=== PATIENT | female | born 1930 | race Caucasian/White ===

== ENCOUNTER → 2017-09-16 | Outpatient (CLI) | payer OTHER ==
[~2017-09-16] MED LIST: ASA FREE ANALG1 EACH PO; ECOTRIN325 MG PO; Z VERAPAMIL HCL PO; Z.0.DIOVAN40 MG PO; Z.0.LIPITOR20 MG PO; Z.0.PLAVIX75 MG PO
== END ==
LOC: NPA 13:00
PROVIDERS: ATTEND Internal Medicine
DX: R69 Illness, unspecified (principal)

== ENCOUNTER → 2017-09-17 | Outpatient (CLI) | payer OTHER | LOC: NPA 12:00 | PROVIDERS: ATTEND Internal Medicine | DX: R69 Illness, unspecified (principal) | CPT/HCPCS: 87493 ==

== ENCOUNTER → 2017-09-24 | Outpatient (CLI) | payer OTHER ==
[2017-09-25 21:44] LABS: ANION GAP 18.6 mmol/L (8-16); BLOOD UREA NITROGEN 19 mg/dL (7-26); BUN/CREATININE RATIO 28 (6-25); CALCIUM 10.3 mg/dL (8.4-10.2); CARBON DIOXIDE 22 mmol/L (22-29); CHLORIDE 99 mmol/L (98-107); CREATININE, SERUM 0.67 mg/dL (0.57-1.11); EST GLOMERULAR FILTRATION RATE > 60 ML/MIN (60-); GLUCOSE 131 mg/dL (74-118); POTASSIUM 3.6 mmol/L (3.5-5.1); SODIUM 136 mmol/L (136-145)
[2017-09-25 21:45] LABS: BASOPHILS % 0.1 % (0.0-1.0); EOSINOPHILS % 0.2 % (0.0-6.0); HEMATOCRIT 41.6 % (34.2-44.1); HEMOGLOBIN 13.4 g/dL (12.0-16.0); MEAN CORPUSCULAR HEMOGLOBIN 27.6 pg (28-32); MEAN CORPUSCULAR HGB CONC 32.2 g/dL (31-35); MEAN CORPUSCULAR VOLUME 85.8 fL (81-99); MONOCYTES % 0.9 % (4.4-11.3); NEUTROPHILS % 5.3 % (38.7-80.0); PLATELET COUNT 361 x10e3/uL (140-360); RED BLOOD COUNT 4.85 x10e6/uL (3.6-5.1); RED CELL DISTRIBUTION WIDTH 63.4 % (11.7-14.4)
== END ==
LOC: NPA 17:00
PROVIDERS: ATTEND Internal Medicine
DX: R69 Illness, unspecified (principal)
CPT/HCPCS: 36415; 80048; 85025

== ENCOUNTER → 2018-01-11 | Outpatient (CLI) | payer MEDICARE, OTHER ==
--- NOTE | 2018-01-11 09:41 | Diagnostic Imaging Report ---
PROCEDURE: SMALL BOWEL SERIES FLUOROSCOPY TIME: 0.4 MINUTES Air Kerma: 18.36 mGy Comparison: CT abdomen and pelvis 12/30/2012. Indications: GAS, CONSTIPATION, UPPER ABDOMINAL PAIN SINCE AUG 2017 Technique: Small bowel follow through exam was performed using oral barium. Preliminary image was obtained before administration of contrast and serial overhead images were obtained after administration of oral barium. Fluoroscopy was performed and spot images were obtained. Findings: Disc Sander radiograph shows a nonobstructive bowel gas pattern. 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 No mass effect or organomegaly. SMALL BOWEL FOLLOW THROUGH: Small bowel loops are normal in caliber and distribution. The terminal ileum is poorly visualized secondary to pelvic location of the cecum and superimposed loops of ileum. However, no abnormal bowel separation or mucosal fold pattern is identified. The transit time was normal. IMPRESSION: Unremarkable fluoroscopic small bowel series. Dictated by: Bassam Pratt M.D. on 01/11/2018 at 9:43 Electronically approved by: Bassam Pratt M.D. on 01/11/2018 at 9:43
== END ==
LOC: DX 08:12
PROVIDERS: ATTEND Internal Medicine Gastroenterology
DX: R10.9 Unspecified abdominal pain (principal); K59.00 Constipation, unspecified
CPT/HCPCS: 74250

== ENCOUNTER → 2018-12-17 | Outpatient (CLI) | payer MEDICARE, OTHER ==
--- NOTE | 2018-12-17 14:26 | Diagnostic Imaging Report ---
Exam: KUB-2 views Clinical History: Left lower quadrant abdominal mass. Comparison: Small bowel series 01/11/[address] abdomen/pelvis 12/30/2012. Findings: Nonobstructive bowel gas pattern. There is a 6 mm calcification overlying the right mid kidney. Extensive degenerative changes of lower lumbar spine with levoconvex scoliosis centered at L2-L3. Impression: Nonobstructive bowel gas pattern. Note is made of clinical history of left lower quadrant abdominal mass. Radiograph is not sensitive for evaluation. If clinically indicated, CT may be considered for further evaluation. Possible 6 mm right-sided kidney stone versus enteric calcification. Signed by: Dr. Xavi Harvey MD on 12/17/2018 2:23 PM
== END ==
LOC: RAD 13:19
PROVIDERS: ATTEND Internal Medicine Gastroenterology
DX: R19.04 Left lower quadrant abdominal swelling, mass and lump (principal)
CPT/HCPCS: 74018

== ENCOUNTER → 2019-01-04 | Outpatient (CLI) | payer MEDICARE, OTHER ==
[~2019-01-04] MED LIST changes: +IOPAMIDOL 370 MG/ML 200 ML INFUS..BTL INJ ONE; +SODIUM CHLORIDE 0.9% 50ML 50 ML ONE
[2019-01-04 08:52] LABS: BLOOD UREA NITROGEN 13 mg/dL (7-26); BUN/CREATININE RATIO 15 (6-25); CREATININE, SERUM 0.85 mg/dL (0.57-1.11); EST GLOMERULAR FILTRATION RATE > 60 ML/MIN (60-)
--- NOTE | 2019-01-04 10:08 | Diagnostic Imaging Report ---
EXAM: CT Abdomen and Pelvis WITH contrast INDICATION: Abdominal pain, diarrhea COMPARISON: KUB 12/17/2018. Images from CT abdomen/pelvis 12/30/2012. TECHNIQUE: Abdomen and pelvis were scanned utilizing a multidetector helical scanner from the lung base to the pubic symphysis after administration of IV contrast. Coronal and sagittal reformations were obtained. Routine protocol was performed. Scan was performed when during portal venous phase. IV CONTRAST: 100 cc of Isovue-370 ORAL CONTRAST: None. COMPLICATIONS: None RADIATION DOSE: Total DLP: 190.8 mGy*cm Estimated effective dose: (DLP x 0.015 x size factor) mSv Dose modulation, iterative reconstruction, and/or weight based adjustment of the mA/kV was utilized to reduce the radiation dose to as low as reasonably achievable. FINDINGS: LINES and TUBES: None. LOWER THORAX: Partially seen pacemaker leads. Patchy dependent atelectasis. Moderate cardiomegaly. Coronary atherosclerosis. Mitral annular calcifications. HEPATOBILIARY: Diffuse mild hepatic steatosis. No evidence of focal lesion. No biliary ductal dilation. GALLBLADDER: Decompressed. Cholelithiasis without CT evidence of cholecystitis. SPLEEN: No splenomegaly. PANCREAS: No focal masses or ductal dilatation. ADRENALS: No adrenal nodules KIDNEYS/URETERS: Kidneys enhance symmetrically. No evidence of hydronephrosis, solid mass, or stone. GI TRACT: No evidence of obstruction. There is colonic diverticulosis without CT evidence of diverticulitis. Streak artifact from adjacent pacer limits evaluation, there is suspected wall thickening at the GE junction (series 2, image 13). There is also possible wall thickening in the distal rectum/anus (series 2, image 74), incompletely evaluated in the absence of oral contrast. Per the patient, the appendix is surgically absent. PELVIC ORGANS/BLADDER: The bladder is unremarkable. Status post hysterectomy. LYMPH NODES: No lymphadenopathy. VESSELS: There is moderate atherosclerotic disease in the aorta and major arterial branches. PERITONEUM / RETROPERITONEUM: No free air or fluid. BONES AND SOFT TISSUES: Indeterminate 1.4 cm soft tissue density in the left perineum. No acute osseous abnormality. No suspicious lytic or blastic lesions. Levoconvex scoliosis of the lumbar spine. Degenerative changes of the lumbar spine. CONCLUSION: Indeterminate 1.4 cm soft tissue density in the left perineum, which would be amenable to direct inspection. Incompletely evaluated possible wall thickening within the distal rectum/anus. Suggest correlation with exam. Possible GE junction wall thickening, which could be evaluated with endoscopy if clinically indicated. Sigmoid diverticulosis without CT evidence of diverticulitis. Hepatic steatosis. Cholelithiasis without CT evidence of cholecystitis. Signed by: Dr. Xavi Harvey MD on 01/04/2019 10:05 AM
== END ==
LOC: CT 07:47
PROVIDERS: ATTEND Internal Medicine Gastroenterology
DX: R19.00 Intra-abdominal and pelvic swelling, mass and lump, unspecified site (principal)
CPT/HCPCS: 36415; 74177; 82565; 84520; Q9967

== ENCOUNTER → 2019-02-09 | Outpatient (CLI) | payer MEDICARE, OTHER ==
[~2019-02-09] MED LIST changes: -IOPAMIDOL 370 MG/ML 200 ML INFUS..BTL INJ ONE; +REGADENOSON 0.4 MG/5 ML SYR IV ONE; -SODIUM CHLORIDE 0.9% 50ML 50 ML ONE
== END ==
LOC: NM 09:52
PROVIDERS: ATTEND Internal Medicine Cardiovascular Disease
DX: I25.10 Atherosclerotic heart disease of native coronary artery without angina pectoris (principal); R94.31 Abnormal electrocardiogram [ECG] [EKG]
CPT/HCPCS: 78452; 93017; A9502; J2785

== ENCOUNTER → 2019-11-03 | Outpatient (CLI) | payer MEDICARE, OTHER ==
[~2019-11-03] MED LIST changes: +ACEBUTOLOL HCL200 MG PO; +DIGOXIN125 MCG PO; +ELIQUIS2.5 MG PO; +FLECAINIDE ACE100 MG PO; +GLIMEPIRIDE2 MG PO; +HEPARIN SOD (PORCINE) 1000 UNIT/ML SDV ONE; +LUMIGAN2.5 M1 OP; +MIRALAX17 GM PO; +PANTOPRAZOLE SO40 MG PO; -REGADENOSON 0.4 MG/5 ML SYR IV ONE; +RESTASIS1 EACH OP; +SYSTANE 0.3-0.415 ML OP
--- NOTE | 2019-11-03 20:03 | Diagnostic Imaging Report ---
Tagged-RBC GI Bleed Study Clinical information: 88-year-old female with black stools x 5-7 days; patient is on blood thinners. Discussion: The patient's own red blood cells were labeled with 25 mCi of technetium-99m pertechnetate using the in vitro method (UltraTag). Dynamic images of the abdomen were obtained through 60 minutes. Distribution of tracer activity appears physiologic throughout the abdomen. No abnormal accumulation of tracer is seen within the gastrointestinal lumen. Impression: No scan evidence of active gastrointestinal bleeding at this time. Signed by: Dr. Kira Cespedes M.D. on 11/03/2019 8:00 PM
== END ==
LOC: NM 12:23
PROVIDERS: ATTEND Internal Medicine Gastroenterology
DX: K92.1 Melena (principal)
CPT/HCPCS: 78278; A9512 ×2; J1644

== ENCOUNTER → 2020-09-11 | Outpatient (CLI) | payer MEDICARE, OTHER ==
[~2020-09-11] MED LIST changes: -HEPARIN SOD (PORCINE) 1000 UNIT/ML SDV ONE
== END ==
LOC: LAB 11:59
PROVIDERS: ATTEND General Practice
DX: E11.65 Type 2 diabetes mellitus with hyperglycemia (principal); Z79.84 Long term (current) use of oral hypoglycemic drugs
CPT/HCPCS: 83036

== ENCOUNTER → 2020-10-12 | Outpatient (CLI) | payer MEDICARE, OTHER ==
[2020-10-12 07:39] LABS: BASOPHILS # (AUTO) 0.1 (0.0-0.1); BASOPHILS % 0.9 % (0.0-1.0); EOSINOPHILS # (AUTO) 0.1 (0.0-0.4); EOSINOPHILS % 2.6 % (0.0-6.0); HEMATOCRIT 42.8 % (34.2-44.1); HEMOGLOBIN 13.7 g/dL (12.0-16.0); LYMPHOCYTES # (AUTO) 1.6 (1.0-3.2); LYMPHOCYTES % 29.7 % (18.0-39.1); MEAN CORPUSCULAR VOLUME 96.8 fL (81-99); MONOCYTES # (AUTO) 0.7 (0.2-0.8); MONOCYTES % 12.3 % (4.4-11.3); NEUTROPHILS # (AUTO) 2.9 (2.1-6.9); NEUTROPHILS % 54.1 % (38.7-80.0); PLATELET COUNT 263 x10e3/uL (140-360); RED BLOOD COUNT 4.42 x10e6/uL (3.6-5.1); RED CELL DISTRIBUTION WIDTH 12.2 % (11.7-14.4)
[2020-10-12 08:00] LABS: ALBUMIN 3.9 g/dL (3.5-5.0); ALBUMIN/GLOBULIN RATIO 1.3 (0.8-2.0); ANION GAP 12.9 mmol/L (8-16); CALCIUM 9.8 mg/dL (8.4-10.2); CHOL/HDL RATIO 3.6 (3.0-3.6); CREATININE, SERUM 0.97 mg/dL (0.57-1.11); MAGNESIUM 2.1 MG/DL (1.3-2.1); POTASSIUM 4.9 mmol/L (3.5-5.1)
[2020-10-12 08:15] LABS: B-TYPE NATRIURETIC PEPTIDE2 411.1 pg/mL (0-100)
[2020-10-12 08:25] LABS: CREATINE KINASE MB 2.1 ng/mL (0-5.0); DIGOXIN 0.76 ng/mL (0.8-2.0)
== END ==
LOC: LAB 07:16
PROVIDERS: ATTEND Internal Medicine Cardiovascular Disease
DX: E11.65 Type 2 diabetes mellitus with hyperglycemia (principal); I11.0 Hypertensive heart disease with heart failure; I48.0 Paroxysmal atrial fibrillation; I25.119 Atherosclerotic heart disease of native coronary artery with unspecified angina pectoris; D51.9 Vitamin B12 deficiency anemia, unspecified; D50.9 Iron deficiency anemia, unspecified; E78.5 Hyperlipidemia, unspecified; Z95.2 Presence of prosthetic heart valve
CPT/HCPCS: 36415; 80053; 80061; 80162; 82550; 82553; 82607; 83036; 83540; 83735; 83880; 84484; 85025